=== PATIENT | female | born 1995 | race Caucasian/White ===

== ENCOUNTER 2019-02-27 22:45 | Emergency (ER) | payer SELFPAY ==
[2019-02-27 22:52] VITALS: BMI 25.8
[2019-02-28] MEDS ORDERED: SODIUM CHLORIDE 0.9% 500 ML INFUS.BAG IV ONE (00:40)
[2019-02-28 01:03] LABS: BASO % 1.3 % (0-2.0); EOS % 6.5 % (0-4.5); HEMOGLOBIN 13.6 GM/dL (10.7-15.3); LYMPH % 26.5 % (8-40); MCH 30.3 pg (25.7-33.7); MCHC 33.2 g/dl (32.0-36.0); MEAN CELL VOLUME 91.3 fl (80-96); MEAN PLT VOLUME 10.4 fl (7.5-11.1); MONO % 6.7 % (3.8-10.2); PLATELET COUNT 306 K/MM3 (134-434); RBC 4.49 M/mm3 (3.60-5.2); RDW 13.2 % (11.6-15.6); WHITE BLOOD COUNT 11.7 K/mm3 (4.0-10.0)
[2019-02-28] MEDS ORDERED: ACETAMINOPHEN 1000 MG/100 ML VIAL (NON FORMULARY) IVPB ONE (01:17)
--- NOTE | 2019-02-28 01:23 | PDOC ---
History of Present Illness - General Chief Complaint: Pain Stated Complaint: ABDOMINAL PAIN Time Seen by Provider: 02/28/19 00:08 History Source: Patient Exam Limitations: Language Barrier - History of Present Illness Initial Comments: 02/28/19 01:18 Patient is a 23-year-old female with history of appendectomy here with complaints of left lower quadrant abdominal pain since yesterday. Patient describes the pain as crampy type X/X continuous and improved with Tylenol and Motrin. Patient states no aggravating factors, no prior episode. Endorses no dysuria but urinary frequency which started today. LMP 02/16/2019. Denies fever, chills, nausea, vomiting. Sexually active with one partner. No vaginal discharge. PMHX: As above PSOCHX: neg etoh, drug, cig ALL: NKDA GENERAL/CONSTITUTIONAL: [No fever or chills. No weakness. No weight change.] HEAD, EYES, EARS, NOSE AND THROAT: [No change in vision. No ear pain or discharge. No sore throat.] CARDIOVASCULAR: [No chest pain or shortness of breath.] RESPIRATORY: [No cough, wheezing, or hemoptysis.] GASTROINTESTINAL: [No nausea, vomiting, diarrhea or constipation. No rectal bleeding.] GENITOURINARY: [No dysuria, frequency, or change in urination.] MUSCULOSKELETAL: [No joint or muscle swelling or pain. No neck or back pain.] SKIN AND BREASTS: [No rash or easy bruising.] NEUROLOGIC: [No headache, vertigo, loss of consciousness, or loss of sensation.] PSYCHIATRIC: [No depression or anxiety.] ENDOCRINE: [No increased thirst. No abnormal weight change.] HEMATOLOGIC/LYMPHATIC: [No anemia, easy bleeding, or history of blood clots.] ALLERGIC/IMMUNOLOGIC: [No hives or skin allergy. No latex allergy.] GENERAL: [The patient is awake, alert, and fully oriented, in no acute distress. ] HEAD: [Normal with no signs of trauma.] EYES: [Pupils equal, round and reactive to light, extraocular movements intact, sclera anicteric, conjunctiva clear.] ENT: [Ears normal, nares patent, oropharynx clear without exudates. Moist mucous membranes.] NECK: [Normal range of motion, supple without lymphadenopathy, JVD, or masses.] LUNGS: [Breath sounds equal, clear to auscultation bilaterally. No wheezes, and no crackles.] HEART: [Regular rate and rhythm, normal S1 and S2 without murmur, rub.] ABDOMEN: [Soft, (+) tenderness to the left lower quad, normoactive bowel sounds. No guarding, no rebound. No masses.] PELVIC: normal external genitalia, small amount of creamy discharge in the vault, left adnexal tenderness EXTREMITIES: [Normal range of motion, no edema. No clubbing or cyanosis. No cords, erythema, or tenderness.] NEUROLOGICAL: [Cranial nerves II through XII grossly intact. Normal speech, normal gait.] PSYCH: [Normal mood, normal affect.] SKIN: [Warm, Dry, normal turgor, no rashes or lesions noted.] Past History - Past Medical History Allergies/Adverse Reactions: Allergies Allergy/AdvReac Type Severity Reaction Status Date / Time No Known Allergies Allergy Verified 02/27/19 22:48 COPD: No - Surgical History Appendectomy: Yes - Psycho Social/Smoking Cessation Hx Smoking History: Never smoked Hx Alcohol Use: No Drug/Substance Use Hx: No *Physical Exam - Vital Signs Last Vital Signs Temp Pulse Resp BP Pulse Ox 97.5 F L 84 20 111/71 99 02/27/19 22:48 02/27/19 22:48 02/27/19 22:48 02/27/19 22:48 02/27/19 22:48 ED Treatment Course - LABORATORY CBC & Chemistry Diagram: 02/28/19 00:55 02/28/19 00:55 - ADDITIONAL ORDERS Additional order review: 02/28/19 00:55 RBC 4.49 MCV 91.3 MCHC 33.2 RDW 13.2 MPV 10.4 Neutrophils % 59.0 Lymphocytes % 26.5 Monocytes % 6.7 Eosinophils % 6.5 H Basophils % 1.3 - RADIOLOGY Radiology Studies Ordered: Category Date Time Status TRANSVAGINAL ULTRASOUND US [US] Stat Ultrasound 02/28/19 00:38 Taken - Medications Given in the ED: ED Medications Discontinued Medications Generic Name Dose Route Start Last Admin Trade Name Freq PRN Reason Stop Dose Admin Sodium Chloride 1,000 ml 02/28/19 00:40 02/28/19 00:55 Normal Saline - IV 02/28/19 00:41 1,000 ml ONCE ONE Administration Medical Decision Making - Medical Decision Making 02/28/19 01:18 Patient is a 23-year-old female with history of appendectomy here with complaints of left lower quadrant abdominal pain since yesterday. Patient describes the pain as crampy type X/X continuous and improved with Tylenol and Motrin. Patient states no aggravating factors, no prior episode. Endorses no dysuria but urinary frequency which started today. LMP 02/16/2019. Denies fever, chills, nausea, vomiting. Sexually active with one partner. No vaginal discharge. DDX: Ovarian torsion, ruptured ovarian cyst, UTI, less likely kidney stone We will get labs include urine IV fluids, Tylenol Ultrasound pelvic rule out torsion. Will endorsed to overnight team pending work-up. 02/28/19 01:55 No acute findings CBC and CMP. Urine is pending Patient Full Name: COLLEEN HOFF Patient Accession No: [id number] Patient : 1995 Reason for Exam: llq abd pain r/o torsion Referring Physician: Patient Name: KAVYA MACIAS THIS IS A PRELIMINARY REPORT FROM IMAGING INCIDENT RESPONSE ANALYST DATE OF SERVICE: 2019-02-28 00:52:47 IMAGES: 30 EXAM: TRANSVAGINAL ULTRASOUND US and pelvic duplex HISTORY: Rule out ovarian torsion COMPARISON: None. FINDINGS: Endovaginal pelvic ultrasound,Uterus is anteverted and measures 6.3centimeters in length. The endometrium is 10millimeters in thickness. There are no fibroids. The right ovary measures 2.7centimeters in length, appears normal and demonstrates normal flow. Left ovary measures 3.0centimeters in length, appears normal and demonstrates normal flow. There is no significant free fluid. Pelvic duplex: There is normal arterial and venous flow in both ovaries. IMPRESSION: Normal exam. THIS DOCUMENT HAS BEEN ELECTRONICALLY SIGNED Jey Barr MD 02/28/2019 01:31 HERMINIO Ybarra Please call Imaging Fish Hatcher[employer] Assistant [phone] ([phone]) with questions. INTERPRETING RADIOLOGIST: Femi Barr MD Electronically Signed: Feb 28, 2019 01:32AM EDT Ultrasound reviewed as above Discharge - Discharge Information Problems reviewed: Yes Clinical Impression/Diagnosis: Abdominal pain Qualifiers: Abdominal location: left lower quadrant Qualified Code(s): R10.32 - Left lower quadrant pain - Follow up/Referral - Patient Discharge Instructions - Post Discharge Activity
[2019-02-28 01:35] LABS: ALBUMIN 4.4 g/dl (3.4-5.0); BILIRUBIN,TOTAL 0.3 mg/dL (0.2-1); BLOOD UREA NITROGEN 17.7 mg/dL (7-18); CALCIUM 9.9 mg/dL (8.5-10.1); CREATININE 0.6 mg/dL (0.55-1.3); POTASSIUM 4.5 mmol/L (3.5-5.1)
[2019-02-28] MEDS ORDERED: ACETAMINOPHEN INJECTION 100 ML IVPB ONE (03:00)
[2019-02-28 03:07] LABS: PH,URINE 6.5 (5.0-8.0); URINE APPEARANCE CLOUDY; URINE BILIRUBIN NEGATIVE (NEGATIVE); URINE COLOR YELLOW; URINE GLUCOSE (UA) NEGATIVE (NEGATIVE); URINE KETONE NEGATIVE (NEGATIVE); URINE LEUK ESTERASE NEGATIVE (NEGATIVE); URINE NITRITE NEGATIVE (NEGATIVE); URINE PROTEIN NEGATIVE (NEGATIVE)
--- NOTE | 2019-02-28 03:41 | PDOC ---
*Physical Exam - Vital Signs Last Vital Signs Temp Pulse Resp BP Pulse Ox 97.5 F L 84 20 111/71 99 02/27/19 22:48 02/27/19 22:48 02/27/19 22:48 02/27/19 22:48 02/27/19 22:48 ED Treatment Course - LABORATORY CBC & Chemistry Diagram: 02/28/19 00:55 02/28/19 00:55 - ADDITIONAL ORDERS Additional order review: Laboratory Results 02/28/19 02/28/19 02/28/19 02:57 02:57 00:55 Sodium 139 Potassium 4.5 Chloride 103 Carbon Dioxide 29 Anion Gap 7 L BUN 17.7 Creatinine 0.6 Est GFR (CKD-EPI)AfAm 149.95 Est GFR (CKD-EPI)NonAf 129.38 Random Glucose 96 Calcium 9.9 Total Bilirubin 0.3 AST 27 ALT 25 Alkaline Phosphatase 86 Total Protein 8.0 Albumin 4.4 Urine Color Yellow Urine Appearance Cloudy Urine pH 6.5 Ur Specific [place] 1.024 Urine Protein Negative Urine Glucose (UA) Negative Urine Ketones Negative Urine Blood Negative Urine Nitrite Negative Urine Bilirubin Negative Urine Urobilinogen 1.0 Ur Leukocyte Esterase Negative Urine HCG, Qual Negative 02/28/19 00:55 RBC 4.49 MCV 91.3 MCHC 33.2 RDW 13.2 MPV 10.4 Neutrophils % 59.0 Lymphocytes % 26.5 Monocytes % 6.7 Eosinophils % 6.5 H Basophils % 1.3 - Medications Given in the ED: ED Medications Discontinued Medications Generic Name Dose Route Start Last Admin Trade Name Brodie PRN Reason Stop Dose Admin Acetaminophen 1,000 mg 02/28/19 01:17 02/28/19 03:04 Ofirmev Injection - IVPB 02/28/19 01:18 1,000 mg ONCE ONE Administration Sodium Chloride 1,000 ml 02/28/19 00:40 02/28/19 00:55 Normal Saline - IV 02/28/19 00:41 1,000 ml ONCE ONE Administration Medical Decision Making - Medical Decision Making Pt signed out to us by the BOILER HELPER 02/28/19 03:41 Patient Name: KAVYA MACIAS THIS IS A PRELIMINARY REPORT FROM IMAGING CUSHION ASSEMBLER DATE OF SERVICE: 2019-02-28 00:52:47 IMAGES: 30 EXAM: TRANSVAGINAL ULTRASOUND US and pelvic duplex HISTORY: Rule out ovarian torsion COMPARISON: None. FINDINGS: Endovaginal pelvic ultrasound,Uterus is anteverted and measures 6.3centimeters in length. The endometrium is 10millimeters in thickness. There are no fibroids. The right ovary measures 2.7centimeters in length, appears normal and demonstrates normal flow. Left ovary measures 3.0centimeters in length, appears normal and demonstrates normal flow. There is no significant free fluid. Pelvic duplex: There is normal arterial and venous flow in both ovaries. IMPRESSION: Normal exam Labs normal and she will be discharged home. 02/28/19 04:17 Discharge - Discharge Information Problems reviewed: Yes Clinical Impression/Diagnosis: Abdominal pain Qualifiers: Abdominal location: left lower quadrant Qualified Code(s): R10.32 - Left lower quadrant pain Condition: Stable Disposition: HOME - Follow up/Referral - Patient Discharge Instructions Patient Printed Discharge Instructions: DI for Abdominal Pain-Adult Additional Instructions: Discharge Instructions: You were seen in the emergency department for abdominal pain. Your blood tests and ultrasound were normal. Home Care and Follow Up: - You may use over the counter medications as needed for pain at home. 650- 1000mg acetaminophen (Tylenol) or 600mg ibuprofen (Motrin or Advil) can be used every 6-8 hours. If needed for continued pain, these medications may be alternated every 3-4 hours. For example, if you take ibuprofen at 9am, you may take acetaminophen at noon, ibuprofen at 3pm, etc. - It is strongly recommended that you take ibuprofen with food to help prevent stomach irritation. If you are taking it for more than a day or two, you may consider taking an acid medication such as Pepcid or Xantac, available over the counter, to protect your stomach. This should be taken first thing in the morning 30-60 minutes before any food or medications. - You may buy a numbing patch that contains lidocaine (the patch is 4% lidocaine ) that can be placed over the areas of greatest pain. The lidocaine patch may be placed for 12 hours then removed for 12 hours. - Try using an ice pack for 20 minutes every hour or a heating pad for additional pain control. These should NOT be used over the lidocaine patch, but you may place them over the areas of pain while the patch is off. - Do not stop moving around. As much as you can tolerate, continue to do light exercise and stretching exercises. Increase your activity level as much as you can tolerate daily. - If your pain does not improve over the next week, you have been given contact information to schedule an appointment with the [facility]. - Seek immediate medical care if you have significant worsening of your symptoms , you are unable to eat, you have persistent nausea/vomiting, you develop fever to 101F, or you have any other medical emergency. Instrucciones de descarga: Lo vieron en el departamento de emergencias por dolor abdominal. Sunny anlisis de peng y ultrasonido fueron normales. Cuidados en el hogar y seguimiento: - Puede usar medicamentos de venta radha segn sea necesario para el dolor en el hogar. Se pueden usar 650-1000 mg de acetaminofeno (Tylenol) o 600 mg de ibuprofeno (Motrin o Advil) cada 6-8 horas. Si es necesario para el dolor continuo, estos medicamentos se pueden alternar cada 3-4 horas. Por ejemplo, si rehan ibuprofeno a las 9 a.m., puede sarah acetaminofeno al medioda, ibuprofeno a las 3 p.m., etc. - Se recomienda encarecidamente que tome ibuprofeno con alimentos para ayudar a prevenir la irritacin estomacal. Si lo est tomando della ms de un da o dos , puede considerar sarah un medicamento cido jeanmarie Pepcid o Xantac, de venta radha, para proteger ruiz estmago. [place] debe tomarse a primera hora de la maana 30-60 minutos antes de cualquier alimento o medicamento. - Puede comprar un parche adormecedor que contiene lidocana (el parche es 4% de lidocana) que se puede colocar sobre las reas de mayor dolor. El parche de lidocana puede colocarse della 12 horas y luego retirarse della 12 horas. - Intente usar demetrius compresa de hielo della 20 minutos cada hora o demetrius almohadilla trmica para controlar el dolor adicional. Estos NO deben usarse sobre el parche de lidocana, johanny puede colocarlos sobre las reas de dolor mientras el parche est apagado. - No dejes de moverte. Tanto jeanmarie pueda tolerar, contine haciendo ejercicios ligeros y ejercicios de estiramiento. Aumente ruiz nivel de actividad tanto jeanmarie pueda tolerar diariamente. - Si ruiz dolor no mejora della la prxima semana, se le cruz dado informacin de contacto para programar demetrius schuyler con la clnica de [facility] [place]. - Busque atencin mdica inmediata si tiene un empeoramiento significativo de sunny sntomas, no puede comer, tiene nuseas / vmitos persistentes, desarrolla fiebre hasta 101F o tiene cualquier otra emergencia mdica. - Post Discharge Activity
--- NOTE | 2019-02-28 03:59 | PDOC ---
*Physical Exam - Vital Signs Last Vital Signs Temp Pulse Resp BP Pulse Ox 97.5 F L 84 20 111/71 99 02/27/19 22:48 02/27/19 22:48 02/27/19 22:48 02/27/19 22:48 02/27/19 22:48 ED Treatment Course - LABORATORY CBC & Chemistry Diagram: 02/28/19 00:55 02/28/19 00:55 - ADDITIONAL ORDERS Additional order review: Laboratory Results 02/28/19 02/28/19 02/28/19 02:57 02:57 00:55 Sodium 139 Potassium 4.5 Chloride 103 Carbon Dioxide 29 Anion Gap 7 L BUN 17.7 Creatinine 0.6 Est GFR (CKD-EPI)AfAm 149.95 Est GFR (CKD-EPI)NonAf 129.38 Random Glucose 96 Calcium 9.9 Total Bilirubin 0.3 AST 27 ALT 25 Alkaline Phosphatase 86 Total Protein 8.0 Albumin 4.4 Urine Color Yellow Urine Appearance Cloudy Urine pH 6.5 Ur Specific [place] 1.024 Urine Protein Negative Urine Glucose (UA) Negative Urine Ketones Negative Urine Blood Negative Urine Nitrite Negative Urine Bilirubin Negative Urine Urobilinogen 1.0 Ur Leukocyte Esterase Negative Urine HCG, Qual Negative 02/28/19 00:55 RBC 4.49 MCV 91.3 MCHC 33.2 RDW 13.2 MPV 10.4 Neutrophils % 59.0 Lymphocytes % 26.5 Monocytes % 6.7 Eosinophils % 6.5 H Basophils % 1.3 - Medications Given in the ED: ED Medications Discontinued Medications Generic Name Dose Route Start Last Admin Trade Name [place] PRN Reason Stop Dose Admin Acetaminophen 1,000 mg 02/28/19 01:17 02/28/19 03:04 Ofirmev Injection - IVPB 02/28/19 01:18 1,000 mg ONCE ONE Administration Sodium Chloride 1,000 ml 02/28/19 00:40 02/28/19 00:55 Normal Saline - IV 02/28/19 00:41 1,000 ml ONCE ONE Administration Medical Decision Making - Medical Decision Making 02/28/19 02:52 Sign out received from MAHIN Hahn. Maribell Lamar is a 23yo woman with a PMH of appendectomy who presented with LLQ pain since yesterday. She denies any dysuria, nausea, vomiting, fevers, chills, or change in bowel habits. ED course so far notable for: - Pelvic US negative for acute abnormalities - UA pending 02/28/19 03:53 - UA negative - Will reassess and d/c home with PMD follow up if improved 02/28/19 03:59 - Feels significantly improved, ready to be discharged home - Advised regarding home care, follow up, return precautions. Pt understands and agrees Discussed with Dr Adan Padilla PGY2 Discharge - Discharge Information Problems reviewed: Yes Clinical Impression/Diagnosis: Abdominal pain Qualifiers: Abdominal location: left lower quadrant Qualified Code(s): R10.32 - Left lower quadrant pain Condition: Stable Disposition: HOME - Admission No - Follow up/Referral - Patient Discharge Instructions Patient Printed Discharge Instructions: DI for Abdominal Pain-Adult Additional Instructions: Discharge Instructions: You were seen in the emergency department for abdominal pain. Your blood tests and ultrasound were normal. Home Care and Follow Up: - You may use over the counter medications as needed for pain at home. 650- 1000mg acetaminophen (Tylenol) or 600mg ibuprofen (Motrin or Advil) can be used every 6-8 hours. If needed for continued pain, these medications may be alternated every 3-4 hours. For example, if you take ibuprofen at 9am, you may take acetaminophen at noon, ibuprofen at 3pm, etc. - It is strongly recommended that you take ibuprofen with food to help prevent stomach irritation. If you are taking it for more than a day or two, you may consider taking an acid medication such as Pepcid or Xantac, available over the counter, to protect your stomach. This should be taken first thing in the morning 30-60 minutes before any food or medications. - You may buy a numbing patch that contains lidocaine (the patch is 4% lidocaine ) that can be placed over the areas of greatest pain. The lidocaine patch may be placed for 12 hours then removed for 12 hours. - Try using an ice pack for 20 minutes every hour or a heating pad for additional pain control. These should NOT be used over the lidocaine patch, but you may place them over the areas of pain while the patch is off. - Do not stop moving around. As much as you can tolerate, continue to do light exercise and stretching exercises. Increase your activity level as much as you can tolerate daily. - If your pain does not improve over the next week, you have been given contact information to schedule an appointment with the [facility]. - Seek immediate medical care if you have significant worsening of your symptoms , you are unable to eat, you have persistent nausea/vomiting, you develop fever to 101F, or you have any other medical emergency. Instrucciones de descarga: Lo vieron en el departamento de emergencias por dolor abdominal. Sunny anlisis de peng y ultrasonido fueron normales. Cuidados en el hogar y seguimiento: - Puede usar medicamentos de venta radha segn sea necesario para el dolor en el hogar. Se pueden usar 650-1000 mg de acetaminofeno (Tylenol) o 600 mg de ibuprofeno (Motrin o Advil) cada 6-8 horas. Si es necesario para el dolor continuo, estos medicamentos se pueden alternar cada 3-4 horas. Por ejemplo, si rehan ibuprofeno a las 9 a.m., puede sarah acetaminofeno al medioda, ibuprofeno a las 3 p.m., etc. - Se recomienda encarecidamente que tome ibuprofeno con alimentos para ayudar a prevenir la irritacin estomacal. Si lo est tomando della ms de un da o dos , puede considerar sarah un medicamento cido jeanmarie Pepcid o Xantac, de venta radha, para proteger ruiz estmago. [place] debe tomarse a primera hora de la maana 30-60 minutos antes de cualquier alimento o medicamento. - Puede comprar un parche adormecedor que contiene lidocana (el parche es 4% de lidocana) que se puede colocar sobre las reas de mayor dolor. El parche de lidocana puede colocarse della 12 horas y luego retirarse della 12 horas. - Intente usar demetrius compresa de hielo della 20 minutos cada hora o demetrius almohadilla trmica para controlar el dolor adicional. Estos NO deben usarse sobre el parche de lidocana, johanny puede colocarlos sobre las reas de dolor mientras el parche est apagado. - No dejes de moverte. Tanto jeanmarie pueda tolerar, contine haciendo ejercicios ligeros y ejercicios de estiramiento. Aumente ruiz nivel de actividad tanto jeanmarie pueda tolerar diariamente. - Si ruiz dolor no mejora della la prxima semana, se le cruz dado informacin de contacto para programar demetrius schuyler con la nica de [facility]. - Busque atencin mdica inmediata si tiene un empeoramiento significativo de sunny sntomas, no puede comer, tiene nuseas / vmitos persistentes, desarrolla fiebre hasta 101F o tiene cualquier otra emergencia mdica. - Post Discharge Activity
[2019-02-28 04:34] VITALS: BP 122/76; PULSE 78; TEMP 97.9
== END 2019-02-28 04:32 | disposition home or self-care (01) ==
LOC: JER 22:45
PROC: 3E033NZ Introduction of Analgesics, Hypnotics, Sedatives into Peripheral Vein, Percutaneous Approach (ICD-10-PCS; principal; 2019-02-27)
DX: R10.32 Left lower quadrant pain (principal)
CPT/HCPCS: 36415; 76830-TC; 80053; 81003; 84703; 85025; 87086; 99282-25; J0131

== ENCOUNTER 2019-03-07 15:10 | Emergency (ER) | payer SELFPAY ==
--- NOTE | 2019-03-07 15:15 | PDOC ---
Rapid Medical Evaluation Time Seen by Provider: 03/07/19 15:12 Medical Evaluation: Allergies Allergy/AdvReac Type Severity Reaction Status Date / Time No Known Allergies Allergy Verified 02/27/19 22:48 03/07/19 15:13 CC: lower abdominal pain with white vaginal discharge. LMP-02/15 PE: suprapubic tenderness Orders: urine Patient will proceed to ED for further evaluation. Discharge Disposition - Diagnosis Abdominal pain - Referrals - Patient Instructions - Post Discharge Activity
[2019-03-07 15:22] VITALS: BP 116/66; PULSE 88; TEMP 98.2; BMI 25.8
[2019-03-07 16:21] LABS: URINE APPEARANCE CLEAR; URINE BILIRUBIN NEGATIVE (NEGATIVE); URINE COLOR YELLOW; URINE GLUCOSE (UA) NEGATIVE (NEGATIVE); URINE KETONE NEGATIVE (NEGATIVE); URINE LEUK ESTERASE NEGATIVE (NEGATIVE); URINE NITRITE NEGATIVE (NEGATIVE); URINE PROTEIN NEGATIVE (NEGATIVE)
--- NOTE | 2019-03-07 16:52 | PDOC ---
History of Present Illness - General Chief Complaint: Pain Stated Complaint: ABD PAIN Time Seen by Provider: 03/07/19 15:12 History Source: Patient Exam Limitations: No Limitations - History of Present Illness Travel History: No Initial Comments: 03/07/19 15:12 23-year-old female presents to the emergency room with complaints of mild mid suprapubic cramping intermittently for the past week. Patient states also noted a whitish nonodorous discharge patient states was seen here about a week ago for the same and had. Labs including ultrasound done but was discharged home with no findings. Patient denies fever, chills irregular menses, dysuria, back pain, or change in bowel pattern Timing/Duration: reports: intermittent Quality: reports: mild, cramping Abdominal Pain Onset Location: reports: suprapubic Pain Radiation: reports: no radiation Activities at Onset: reports: none Aggravating Factors: improves with: None Alleviating Factors: improves with: None Past History - Travel Traveled outside of the country in the last 30 days: No Close contact w/someone who was outside of country & ill: No - Past Medical History Allergies/Adverse Reactions: Allergies Allergy/AdvReac Type Severity Reaction Status Date / Time No Known Allergies Allergy Verified 03/07/19 15:14 COPD: No - Surgical History Appendectomy: Yes - Immunization History Immunization Up to Date: No - Psycho Social/Smoking Cessation Hx Smoking History: Never smoked Information on smoking cessation initiated: No Hx Alcohol Use: No Drug/Substance Use Hx: No Patient Lives Alone: No Lives with/in: parents Review of Systems - Review of Systems Able to Perform ROS?: Yes Constitutional: No: Symptoms Reported ABD/GI: Yes: Abdominal cramping : Yes: Discharge (whitish ) Musculoskeletal: No: Symptoms Reported Integumentary: No: Symptoms Reported Neurological: No: Symptoms reported Hematologic/Lymphatic: No: Symptoms Reported *Physical Exam - Vital Signs Last Vital Signs Temp Pulse Resp BP Pulse Ox 98.2 F 88 17 116/66 99 03/07/19 15:14 03/07/19 15:14 03/07/19 15:14 03/07/19 15:14 03/07/19 15:14 - Physical Exam General Appearance: Yes: Nourished, Appropriately Dressed. No: Apparent Distress HEENT: negative: Pale Conjunctivae Female Pelvic Exam: positive: normal external exam, discharge (whitish creamy , no odor). negative: vaginal bleeding Gastrointestinal/Abdominal: positive: Soft, Tenderness (mild midsuprapubic) Integumentary: positive: Normal Color, Warm, Moist Neurologic: positive: Motor Strength 5/5 (ambulatory) ED Treatment Course - ADDITIONAL ORDERS Additional order review: Laboratory Results 03/07/19 03/07/19 16:00 16:00 Urine Color Yellow Urine Appearance Clear Urine pH 6.0 Ur Specific [place] 1.025 Urine Protein Negative Urine Glucose (UA) Negative Urine Ketones Negative Urine Blood Negative Urine Nitrite Negative Urine Bilirubin Negative Urine Urobilinogen 1.0 Ur Leukocyte Esterase Negative Urine HCG, Qual Negative - RADIOLOGY Radiology Studies Ordered: Category Date Time Status PELVIC / BLADDER US [US] Stat Ultrasound 03/07/19 15:53 Ordered Medical Decision Making - Medical Decision Making 03/07/19 17:18 CC: suprapubic tenderness with whitish discharge, seen here last week for the same, had labs and u/s Exam: midsuprabic tenderness, normal vag discharge, no adnexal tenderness Plan: urine, std w/u. pelvic u/s 03/07/19 17:21 Laboratory Tests 03/07/19 03/07/19 16:00 16:00 Urine Protein Negative Urine Glucose (UA) Negative Urine Ketones Negative Urine Blood Negative Urine Nitrite Negative Urine Bilirubin Negative Ur Leukocyte Esterase Negative Urine HCG, Qual Negative 03/07/19 17:48 Ultrasound shows normal appearing left and right ovary with normal vascular flow. There is a trace free fluid in the cul-de-sac. Otherwise unremarkable exam. Patient had normal urine. Will discharge patient home with recommendations to follow-up with [facility] Discharge - Discharge Information Problems reviewed: Yes Clinical Impression/Diagnosis: Abdominal pain Condition: Good Disposition: HOME - Follow up/Referral Referrals: Jada Salinas MD [Staff Physician] - - Patient Discharge Instructions Patient Printed Discharge Instructions: DI for Pelvic Pain Additional Instructions: Please take Tylenol/ Motrin for discomfort but I do want you to follow-up with user experience architect. You may also try putting heating pad to the affected area to alleviate discomfort. - Post Discharge Activity
== END 2019-03-07 18:20 | disposition home or self-care (01) ==
LOC: JER 15:10
DX: R10.2 Pelvic and perineal pain (principal)
CPT/HCPCS: 36415; 76856-TC; 81003; 84703; 87086; 87491; 87591; 99281-25